=== PATIENT | male | born 1985 | race Caucasian/White ===

== ENCOUNTER 2022-03-07 18:30 | Inpatient (IN) | payer OTHER ==
[~2022-03-07] VITALS: Ht 185.4 cm; Wt 90.7 kg
== END 2022-03-10 20:08 | disposition home or self-care (01) | DRG 811 ==
LOC: ER 18:30 → SEC-K 22:34 → ICU-2 22:34 → SEC-K 03-08 18:25 → SURG 03-08 21:45
PROVIDERS: ADMIT Internal Medicine; ATTEND Internal Medicine
PROC: B020ZZZ Computerized Tomography (CT Scan) of Brain (ICD-10-PCS; 2022-03-07)
PROC: BW40ZZZ Ultrasonography of Abdomen (ICD-10-PCS; 2022-03-07)
PROC: BW21YZZ Computerized Tomography (CT Scan) of Abdomen and Pelvis using Other Contrast (ICD-10-PCS; 2022-03-07)
PROC: 0DJ08ZZ Inspection of Upper Intestinal Tract, Via Natural or Artificial Opening Endoscopic (ICD-10-PCS; principal; 2022-03-08)
PROC: 30233N1 Transfusion of Nonautologous Red Blood Cells into Peripheral Vein, Percutaneous Approach (ICD-10-PCS; 2022-03-08)
PROC: 4A12X4Z Monitoring of Cardiac Electrical Activity, External Approach (ICD-10-PCS; 2022-03-08)
DX: D64.89 Other specified anemias (principal); K29.01 Acute gastritis with bleeding; K92.0 Hematemesis; R55 Syncope and collapse; R53.1 Weakness